=== PATIENT | female | born 1960 | race Caucasian/White ===

== ENCOUNTER → 2017-02-01 | Outpatient (CLI) | payer MEDICARE, OTHER ==
[2016-05-13 17:20] VITALS: BP 125/72
[~2017-02-01] MED LIST: ALPR2TAB5 PO; CETI10TA22 PO; CYCL10TA2 PO; FURO-68 PO; HYDR25TA9 PO; LAMO150T PO; LISI10TA2 PO; MELO7.5T29 PO; OMEP40CA2 PO; OXYC-323 PO; OXYC-327 PO; SPIR50TA PO; SUMA50TA3 PO; TRAM50TA PO; WARF3TAB54 PO; ZOLP10TA PO
--- NOTE | 2017-02-01 14:03 | CARD ---
APPROVED REPORT EXAM: Two-dimensional and M-mode echocardiogram with Doppler and color Doppler. Other Information Quality : Average Rhythm : NSR INDICATION Arrhythmia 2D DIMENSIONS RVDd2.9 (2.9-3.5cm)Left Atrium(2D)2.9 (1.6-4.0cm) IVSd1.1 (0.7-1.1cm)Aortic Root(2D)2.9 (2.0-3.7cm) LVDd4.4 (3.9-5.9cm)LVOT Diameter2.0 (1.8-2.4cm) PWd1.1 (0.7-1.1cm)LVDs2.7 (2.5-4.0cm) FS (%) 39.1 %SV61.9 ml LVEF(%)69.8 (>50%) Aortic Valve AoV Peak Brenton.115.3cm/sAoV VTI25.4cm AO Peak GR.5.3mmHgLVOT Peak Brenton.84.3cm/s LVOT VTI 20.24cmAO Mean GR.3mmHg SHAISTA (VMAX)2.81rt8WZR (VTI)2.42cm2 Mitral Valve MV E [place]29.4cm/sMV DECEL MULL952iw MV A Rvcafwwb868.2cm/sMV E Mean Gr.2mmHg MV QQU48suR/A Ratio0.9 MV A Kcuwlbwx75uiFSB (PHT)3.52cm2 TDI E/Lateral E'9.4E/Medial E'7.5 Pulmonary Valve PV Peak Lpovgdau84.7cm/sPV Peak Grad.2mmHg RVOT VTI20.0cm Tricuspid Valve TR P. Qphguumx748jk/sRAP OKXLNOIK7sqVh TR Peak Gr.65xzRgMHMB29xfDs Pulmonary Vein S1 Fbgdbcyo06.3cm/sD2 Nbuqmame36.6cm/s LEFT VENTRICLE The left ventricle is normal size. There is normal left ventricular wall thickness. Left ventricle sy stolic function is normal. The Ejection Fraction is 65-70%. There is normal LV segmental wall motion. The left ventricular diastolic function and filling is normal for age. There is no ventricular septa l defect visualized. RIGHT VENTRICLE The right ventricle is normal size. The right ventricular systolic function is normal. ATRIA The left atrium size is normal. The right atrium size is normal. The interatrial septum is intact wit h no evidence for an atrial septal defect or patent foramen ovale as noted on 2-D or Doppler imaging. AORTIC VALVE The aortic valve is not well visualized. Doppler and Color Flow revealed no significant aortic regurg itation. There is no significant aortic valvular stenosis. MITRAL VALVE The mitral valve is normal in structure. There is no mitral valve stenosis. Doppler and Color Flow re vealed trace to mild mitral regurgitation. TRICUSPID VALVE The tricuspid valve is normal in structure and function. Doppler and Color Flow revealed trace tricus pid regurgitation. The PA pressure was estimated at 23 mmHg. There is no tricuspid valve stenosis. PULMONIC VALVE The pulmonic valve is not well visualized. Doppler and Color Flow revealed no pulmonic valvular regur gitation. There is no pulmonic valvular stenosis. GREAT VESSELS The aortic root is normal in size. Normal pulmonary venous flow (Doppler). The IVC is normal in size and collapses >50% with inspiration. PERICARDIAL EFFUSION There is no evidence of significant pericardial effusion. Critical Notification Critical Value: No <Conclusion> Left ventricle systolic function is normal. The Ejection Fraction is 65-70%. There is normal LV segmental wall motion.
== END | disposition home or self-care (01) ==
LOC: ECHO 12:48
PROVIDERS: ATTEND Internal Medicine
DX: I49.8 Other specified cardiac arrhythmias (principal)
CPT/HCPCS: 93306

== ENCOUNTER → 2017-02-18 | Outpatient (CLI) | payer MEDICARE, OTHER ==
[2016-05-13 17:20] VITALS: BP 125/72
[2017-02-18 19:17] LABS: BF CLARITY HAZY; BF COLOR YELLOW
== END | disposition home or self-care (01) ==
LOC: SPEC 15:04
PROVIDERS: ATTEND Orthopaedic Surgery
DX: Z51.81 Encounter for therapeutic drug level monitoring (principal); Z98.890 Other specified postprocedural states
CPT/HCPCS: 87071; 87075; 87205; 89050

== ENCOUNTER → 2017-02-25 | Outpatient (CLI) | payer MEDICARE, OTHER ==
[2016-05-13 17:20] VITALS: BP 125/72
[~2017-02-25] MED LIST changes: -LAMO150T PO; +LAMO150T2 PO
== END | disposition home or self-care (01) ==
LOC: NM 08:14
PROVIDERS: ATTEND Internal Medicine Cardiovascular Disease
DX: R55 Syncope and collapse (principal)
CPT/HCPCS: 96374

== ENCOUNTER → 2018-06-06 | Outpatient (CLI) | payer MEDICARE, OTHER ==
[2016-05-13 17:20] VITALS: BP 125/72
[~2018-06-06] MED LIST changes: +HYDR-2145 PO; -HYDR25TA9 PO; -OXYC-323 PO; -OXYC-327 PO; +OXYC1TAB15 PO; +OXYC1TAB19 PO
--- NOTE | 2018-06-06 10:37 | KCIC ---
Examination: MRI of the left knee without contrast HISTORY: History of pain in the left knee, crepitus. COMPARISON: None available Technique: Multiplanar, multisequence MR imaging of the left knee was performed without contrast. FINDINGS: The anterior cruciate ligament, posterior cruciate ligament appear intact. Minimal increased T2 signal identified in the substance of the medial and lateral meniscus likely mild degeneration. The medial collateral ligament is intact. Lateral collateral ligamentous complex including the fibular collateral ligament, biceps femoris tendon, popliteus tendon appear intact. The medial retinaculum, lateral retinaculum appear intact. Deep fissuring of cartilage identified in the patellofemoral compartments. Small subchondral cystic changes identified in the patella. There is superficial fraying of cartilage identified in the lateral compartment. There is deep fissuring of cartilage identified in the medial compartment. No evidence of popliteal cyst. The extensor mechanism is intact. Moderate knee joint effusion. Moderate joint space loss identified in the medial, patellofemoral compartments. Mild joint space loss identified in the lateral compartment. IMPRESSION: 1. 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 2. Moderate knee joint effusion. 2. Mild increased signal identified in the body of the medial, lateral meniscus likely mild degeneration. Electronically signed by: Montana Mcgee MD (06/06/2018 10:34 AM) [facility]
== END | disposition home or self-care (01) ==
LOC: KCIC MRI 09:03
PROVIDERS: ATTEND Orthopaedic Surgery
DX: M22.42 Chondromalacia patellae, left knee (principal); M25.462 Effusion, left knee
CPT/HCPCS: 73721

== ENCOUNTER → 2020-11-05 | Outpatient (CLI) | payer MEDICARE, MEDICAID ==
[2016-05-13 17:20] VITALS: BP 125/72
[~2020-11-05] MED LIST changes: -CETI10TA22 PO; +CETI10TA74 PO; -LAMO150T2 PO; +LAMO150T4 PO; +LISI10TA16 PO; -LISI10TA2 PO
--- NOTE | 2020-11-05 16:08 | KCIC ---
EXAM: MRI LEFT SHOULDER WITHOUT CONTRAST INDICATION: Chronic left shoulder pain COMPARISON: None TECHNIQUE: Multiplanar, multisequence imaging of the left shoulder without contrast. FINDINGS: ROTATOR CUFF: There is a deep partial-thickness bursal sided tear of the anterior supraspinatus tendo n with probable thin intact articular sided fibers (image [id number], series 7). A full-thickness componen t is not excluded. This is superimposed on severe supraspinatus and infraspinatus tendinopathy. There is shallower partial-thickness articular sided tearing in the midportion of the supraspinatus tendon . There are cystic changes extending into the supraspinatus and infraspinatus myotendinous junctions. Subscapularis and teres minor tendons are intact. No rotator cuff muscle atrophy or edema. LABRUM: There is a superior labral tear (image 12, series 7). BICEPS TENDON: Intact and located.. ACROMIOCLAVICULAR JOINT: Mild acromioclavicular degenerative joint disease. There are small superior and inferior osteophytes. Small subchondral enthesophyte indenting the supraspinatus myotendinous hilda ction. GLENOHUMERAL JOINT: Articular cartilage is intact. No acute fracture or marrow signal abnormality. Al ignment is normal. OTHER: Small amount of fluid in the joint and trace fluid in the subacromial-subdeltoid bursa. IMPRESSION: 1. Severe supraspinatus and infraspinatus tendinopathy with a high-grade tear of the anterior suprasp inatus tendon. 2. Superior labral tear. 3. Mild acromioclavicular degenerative joint disease. There is a subacromial enthesophyte indenting t he supraspinatus. Electronically signed by: Cinda Clifton MD (11/05/2020 4:05 PM) [id number]
== END ==
LOC: KCIC MRI 09:56
PROVIDERS: ATTEND Internal Medicine Rheumatology
DX: S43.432A Superior glenoid labrum lesion of left shoulder, initial encounter (principal); M75.112 Incomplete rotator cuff tear or rupture of left shoulder, not specified as traumatic; M19.012 Primary osteoarthritis, left shoulder; M25.712 Osteophyte, left shoulder; M77.8 Other enthesopathies, not elsewhere classified; M75.02 Adhesive capsulitis of left shoulder; M25.812 Other specified joint disorders, left shoulder; X58.XXXA Exposure to other specified factors, initial encounter; Y93.89 Activity, other specified; Y92.89 Other specified places as the place of occurrence of the external cause; Y99.8 Other external cause status
CPT/HCPCS: 73221

== ENCOUNTER → 2021-01-28 | Outpatient (CLI) | payer MEDICARE, MEDICAID ==
[2016-05-13 17:20] VITALS: BP 125/72
--- NOTE | 2021-01-28 11:34 | KCIC ---
AP pelvis, single view left hip 01/28/2021 INDICATION: Left hip pain. Probably arthralgia Findings: No evidence of fracture or dislocation is identified. Articular surfaces are uninterrupted. Joint spaces appear preserved. No acute soft tissue findings are identified. IMPRESSION: No evidence of acute osseous of abnormality. Electronically signed by: Romero Stroud MD (01/28/2021 11:32 AM) [id number]
== END ==
LOC: KCIC 10:36
PROVIDERS: ATTEND Internal Medicine Rheumatology
DX: M25.552 Pain in left hip (principal)
CPT/HCPCS: 73501